=== PATIENT | male | born 1965 | race Caucasian/White ===

== ENCOUNTER 2019-01-29 15:22 | Emergency (ER) | payer OTHER, SELFPAY ==
[2019-01-29 15:23] VITALS: BP 123/74; PULSE 95; RESP 16; TEMP 36.5; O2SAT 97; BMI 27.1
--- NOTE | 2019-01-29 16:01 | ED.VIS.GEN ---
History of Present Illness Chief Complaint: Eye Problem Informant: Patient Onset: Yesterday Timing: Continuous Current Severity: Moderate Maximum Severity: Moderate Narrative: Patient presents with right eye foreign body since yesterday, after a grinding incident. He has no vision changes. He was seen in urgent care. Past Medical History - Allergies and Home Meds Allergies/Adverse Reactions: Allergies No Known Allergies Allergy (Verified 01/29/19 15:25) Primary Care Physician: Mayda Peña DO [Primary Care Provider] - Past Medical History: None Smoking Status: Former smoker Review of Systems General: Denies: Fever Eyes: Reports: - - Right eye foreign body as in HPI Neurological: Denies: Headache Hematologic: Denies: Easy bruising Physical Exam Vital Signs/Narrative: Vital Signs Temp Pulse Resp BP Pulse Ox 01/29/19 15:23 97.7 F L 95 16 123/74 H 97 General: Well nourished, Well developed Head: Normocephalic Eyes: - - Punctate lesion just medial to the pupil no conjunctivitis ENT: Moist mucous membranes Cardiovascular: Regular rate Respiratory: No distress Skin: Normal color Neurological: Alert, Oriented x3 Diagnostic/Tx/Re-eval - Medical Decision Making Foreign body was removed, there is slight residual rust ring which could not fully be removed. Patient will be discharged to follow-up with ophthalmology. Disposition discharged home stable condition Procedures Procedure(s): Foreign body removal right eye: Tetracaine was applied, I attempted to remove the foreign body with an 18-gauge needle, I was unsuccessful. I used a bur. Foreign body was removed, there was a rust ring after that most of the blistering was removed, however I could not remove all of it. ED Disposition - Plan for ED Patient: Disposition: Home or Assisted Living Diagnosis: Corneal foreign body Instructions: Corneal Injury, CORNEAL FOREIGN BODY, Removed, w/ Rust Ring Referrals: Jun Toribio MD [STAFF PHYSICIAN] - 2 Days
== END 2019-01-29 16:17 | disposition home or self-care (01) ==
LOC: ED 16:14
PROVIDERS: Emergency Provider Emergency Medicine; Family Provider Family Medicine; PCP Family Medicine
DX: T15.01XA Foreign body in cornea, right eye, initial encounter (principal); X58.XXXA Exposure to other specified factors, initial encounter; Y93.9 Activity, unspecified; Y92.9 Unspecified place or not applicable; Y99.9 Unspecified external cause status; Z87.891 Personal history of nicotine dependence
CPT/HCPCS: 99282

== ENCOUNTER → 2020-08-07 10:03 | Outpatient (CLI) | payer OTHER, SELFPAY ==
[2020-08-07 12:20] LABS: Anion Gap 4 (5-15); BUN 17 mg/dL (7-18); BUN/Creat Ratio 15.5 RATIO (10-20); Calcium,Total 8.9 mg/dL (8.5-10.1); Chloride 107 mmol/L (98-107); Cholesterol 194 mg/dL (200); EST Glomerular Filtration Rate 74 mL/min (>60); Est Glom Filt Rate - Afr Amer 90 mL/min (>60); Glucose 112 mg/dL (74-106); High Density Lipoprotein 40 mg/dL; PSA,Total - Annual Screen 0.32 ng/mL (0.00-4.00); Sodium Level 141 mmol/L (136-145); Triglycerides 118 mg/dL; Very Low Density Lipoprotein 24 mg/dL (5-40)
== END ==
PROVIDERS: PCP Family Medicine; Visit Provider Family Medicine
DX: Z13.1 Encounter for screening for diabetes mellitus (principal); Z13.220 Encounter for screening for lipoid disorders; Z12.5 Encounter for screening for malignant neoplasm of prostate
CPT/HCPCS: 36415; 80048; 80061; 84153; G0103

== ENCOUNTER 2023-02-22 16:50 | Emergency (ER) | payer OTHER, SELFPAY ==
[2023-02-22 16:52] VITALS: BP 134/89; PULSE 73; RESP 18; TEMP 36.4; O2SAT 97; BMI 25.2
--- NOTE | 2023-02-22 16:57 | NURSING ---
NO OLD EKGS
--- NOTE | 2023-02-22 17:17 | EKG12_ITS ---
Test Reason : cp Blood Pressure : / mmHG Vent. Rate : 064 BPM Atrial Rate : 064 BPM P-R Int : 192 ms QRS Dur : 088 ms QT Int : 396 ms P-R-T Axes : 053 -20 016 degrees QTc Int : 408 ms Normal sinus rhythm Normal ECG Confirmed by KENZIE WREN ([id number]), medical editor ADONAY REGAN ([id number]) on 03/02/2023 2:00:32 PM Referred By: Ariel Confirmed By:KENZIE WREN
--- NOTE | 2023-02-22 17:20 | NURSING ---
NO OLD EKGS
[2023-02-22] MEDS: Aspirin 81 MG TAB.CHEW 324 MG PO (17:25)
[2023-02-22 17:26] VITALS: O2SAT 96
[2023-02-22 17:29] LABS: Absolute Lymphocyte Count 2.07 X10^3/uL (0.83-4.51); Absolute Neutrophil Count 4.5 X10^3/uL (2.0-7.7); Basophil# 0.04 X10^3/uL; Basophil% 0.5 % (0-1); Eosinophil# 0.16 X10^3/uL; Eosinophils% 2.1 % (0-5); Hematocrit 40.8 % (40-54); Hemoglobin 13.6 g/dL (13.0-16.5); Lymphocyte # 2.07 X10^3/ul (0.83-4.51); Lymphocyte % 27.7 % (19-41); Mean Corp Hgb Conc 33.3 g/dL (32-36); Mean Corpuscular Hgb 31.3 pg (27.0-32.0); Mean Corpuscular Volume 93.8 fL (80-94); Mean Platelet Vol. 9.4 fl (6.2-12.0); Monocyte# 0.73 X10^3/uL; Monocyte% 9.8 % (0-10); NRBC Flagged by Analyzer 0 % (0-5); Neutrophil # 4.46 X10^3/uL (2.7-7.7); Neutrophil % 59.6 % (47-70); Platelet Count 216 K/mm3 (150-450); RBC Distribution Width SD 44.6 fl (35.1-43.9); Red Blood Count 4.35 M/mm3 (4.6-6.2); White Blood Count 7.5 K/mm3 (4.4-11.0)
--- NOTE | 2023-02-22 17:35 | EDS_ITS ---
HPI <ALEXSANDER Solomon - Last Filed: 02/22/23 18:58> History of Present Illness Chief Complaint: Chest Pain Narrative Narrative: Patient presenting today with midsternal chest tightness that he has had intermittently over the past week. 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 Throughout the week he has noticed that every time he tries to exert himself he develops midsternal chest tightness and feels short of breath. This has never happened before, he denies a cardiac history. He denies a PMH of any chronic health conditions. Significant family history for cardiac disease includes his grandmother and uncle who had an RI. He denies any fever, chills, abdominal pain, nausea, and vomiting. PE Risk Factors: Negative for Recent Travel/Surgery, Recent Immobilization, Prior DVT or PE or Cancer PFS <ALEXSANDER Solomon - Last Filed: 02/22/23 18:58> [facility] Medical History Encounter for examination required by Department of Transportation (DOT) Medical History no medical history Home Medications NK 01/29/19 [History Last Taken Unknown] Allergy/AdvReac Type Severity Reaction Status Date / Time No Known Allergies Allergy Verified 02/22/23 16:51 Social History Smoking Status: Former smoker ROS <ALEXSANDER Solomon - Last Filed: 02/22/23 18:58> ROS ED Constitutional Constitutional ED: Denies chills or fever(s) Cardiovascular Cardiovascular: Reports chest pain with activity; Denies palpitations or racing heartbeat Respiratory/Chest Respiratory/Chest: Reports dyspnea on exertion; Denies cough or dyspnea Gastrointestinal Gastrointestinal: Denies abdominal pain, nausea or vomiting Musculoskeletal Musculoskeletal: Denies arthralgias or myalgias Integumentary Denies rash Neurologic Neurologic: Denies weakness EXAM <ALEXSANDER Solomon - Last Filed: 02/22/23 18:58> Physical Exam Const Vital Signs: 02/22/23 16:52 02/22/23 17:26 Temperature 97.6 F L Temperature Source Temporal Pulse Rate 73 Respiratory Rate 18 Blood Pressure 134/89 H Blood Pressure Mean 104 Pulse Ox 97 96 Oxygen Delivery Method Room Air Room Air Positive well nourished, well developed and no apparent distress General Appearance ED: well developed HEENT Reports normocephalic and head/scalp atraumatic Mouth ED: Yes moist mucous membranes normal Eyes PERRL and EOMs intact bilaterally Neck full ROM and supple Chest Wall inspection of chest normal Resp normal respiratory effort and clear to auscultation bilaterally Cardio regular rate and regular rhythm GI soft to palpation, non-tender, non-distended and no masses Back/Spine normal ROM and normal to inspection Extremity normal to inspection and full ROM Neuro oriented x3, CN's II-XII intact bilaterally, moves all extremities, no focal motor deficits and no sensory deficits noted Sensorium / Orientation: awake and alert Psych mental status grossly normal and thought process normal Skin no rashes or lesions noted and no wounds <Dr. Young Avalos, DO - Last Filed: 02/22/23 18:03> Physical Exam Const Vital Signs: 02/22/23 16:52 02/22/23 17:26 Temperature 97.6 F L Temperature Source Temporal Pulse Rate 73 Respiratory Rate 18 Blood Pressure 134/89 H Blood Pressure Mean 104 Pulse Ox 97 96 Oxygen Delivery Method Room Air Room Air <ALEXSANDER Solomon - Last Filed: 02/22/23 18:58> Heart Score History: Moderately Suspicious ECG: Normal Age: >45 - <65 years Risk Factors: No Risk Factors Troponin: </= Normal Limit Score: 2 MDM <ALEXSANDER Solomon - Last Filed: 02/22/23 18:58> [facility] Narrative Medical decision making narrative: Patient presenting due to midsternal chest tightness that he has been e xperiencing with exertion over the past week. He reports that it does not occur at rest and he has never had this happen before. He denies a PMH of any chronic health conditions. He is well-appearing and in no acute distress, vitals are unremarkable. Labs will be obtained to rule out leukocytosis, anemia, electrolyte abnormality, and ACS. Chest x-ray will be obtained to rule out pneumothorax, pleural effusion, and other cardiopulmonary abnormality. Labs overall unremarkable, troponin WNL. EKG is normal sinus rhythm. Patient has a heart score of 2, patient has been encouraged to follow-up outpatient for cardiac testing and has been given strict return instructions. He will be discharged home in stable condition and is comfortable with plan. Lab Data Attestation: I reviewed the patient's lab results. Labs: Laboratory Results - last 24 hr 02/22/23 17:05 WBC 7.5 RBC 4.35 L Hgb 13.6 Hct 40.8 MCV 93.8 MCH 31.3 MCHC 33.3 RDW Std Deviation 44.6 H RDW Coeff of She 13.0 Plt Count 216 MPV 9.4 Immature Gran % (Auto) 0.300 Neut % (Auto) 59.6 Lymph % (Auto) 27.7 [place] % (Auto) 9.8 Eos % (Auto) 2.1 Baso % (Auto) 0.5 Absolute Neuts (auto) 4.5 Absolute Lymphs (auto) 2.07 Nucleated RBC % 0 Sodium 139 Potassium 3.6 Chloride 106 Carbon Dioxide 27.0 Anion Gap 6 BUN 18 Creatinine 1.03 Estim Creat Clear Calc 94.57 Est GFR (MDRD) Af Amer 96 Est GFR (MDRD) Non-Af 79 BUN/Creatinine Ratio 17.5 Glucose 118 H Calcium 9.0 Troponin I High Sens 4 Radiography X-Ray: Read by ED Physician and Read by Radiologist Diagnostic Testing: Clinical Impression(s) from Imaging Studies Chest X-Ray 02/22/23 17:39 IMPRESSION: No radiographic evidence of acute cardiopulmonary disease. Electronically Signed: Mg Mesa MD at 17:57 EDT Reading Location ID and State: [facility] / [place] , Service support , EKG Initial EKG: Comments: 64 bpm, normal sinus rhythm, no ST elevation, reviewed and interpreted by attending ED physician <Dr. Young Avalos, DO - Last Filed: 02/22/23 18:03> [facility] Lab Data Labs: Laboratory Results - last 24 hr 02/22/23 17:05 WBC 7.5 RBC 4.35 L Hgb 13.6 Hct 40.8 MCV 93.8 MCH 31.3 MCHC 33.3 RDW Std Deviation 44.6 H RDW Coeff of She 13.0 Plt Count 216 MPV 9.4 Immature Gran % (Auto) 0.300 Neut % (Auto) 59.6 Lymph % (Auto) 27.7 [place] % (Auto) 9.8 Eos % (Auto) 2.1 Baso % (Auto) 0.5 Absolute Neuts (auto) 4.5 Absolute Lymphs (auto) 2.07 Nucleated RBC % 0 Sodium 139 Potassium 3.6 Chloride 106 Carbon Dioxide 27.0 Anion Gap 6 BUN 18 Creatinine 1.03 Estim Creat Clear Calc 94.57 Est GFR (MDRD) Af Amer 96 Est GFR (MDRD) Non-Af 79 BUN/Creatinine Ratio 17.5 Glucose 118 H Calcium 9.0 Troponin I High Sens 4 Radiography Diagnostic Testing: Clinical Impression(s) from Imaging Studies Chest X-Ray 02/22/23 17:39 IMPRESSION: No radiographic evidence of acute cardiopulmonary disease. Electronically Signed: Mg Mesa MD at 17:57 EDT Reading Location ID and State: [facility] / [place] , Service support , Treatment and Re-Evaluation :: I have personally performed a face to face assessment of the patient and have reviewed the SUDHA Note. I performed a substantive portion of the visit including all aspects of the following. My arthur findings include: History: Patient presents with chest pain that has been intermittent over the last week. Patient states it is over the left side of his chest. Patient denies any radiation of the pain. Patient admits to some shortness of breath with the pain. Patient admits to some diaphoresis. Patient denies any nausea or vomiting. Patient denies any fevers or chills. Patient denies any cough. Patient states his pain gets worse with exertion. Exam: Vital signs are stable. Patient is afebrile. Patient is in no acute distress. Oral mucosa is pink and moist. Neck is supple. Trachea is midline. There is no JVD. Heart was regular rate and rhythm. Lungs are clear and equal bilaterally. Abdomen is soft. Bowel sounds are normal. There is no tenderness. Cranial nerves II through XII are intact. There are no focal motor or sensory deficits noted. Medical Decision Making: Differential diagnosis includes cardiac dysrhythmia, cardiac ischemia, pneumonia, pneumothorax, electrolyte abnormality, anxiety, and musculoskeletal pain. EKG will be obtained to assess for cardiac dysrhythmia and cardiac ischemia. CBC will be obtained to assess for leukocytosis and anemia. Basic metabolic profile will be obtained to assess for electrolyte abnormality and renal function. High-sensitivity troponin will be obtained to assess for cardiac ischemia. Chest x-ray will be obtained to assess for pneumonia and pneumothorax. EKG was obtained. On my independent interpretation, it showed a normal sinus rhythm with a rate of 64. [place] interval, QRS interval, and QTc intervals were all normal. [place] was normal. There are no acute ST or T wave changes. Portable 1 view chest x-ray was obtained. On my independent interpretation, lung mcgarry are clear. There is normal cardiac silhouette. Bony thorax is normal. There is no acute process noted. Radiologist also interpreted the x-ray and agrees. CBC was reviewed and was within normal limits. Basic metabolic profile was revi ewed and was within normal limits. High-sensitivity troponin was reviewed and was normal at 4. Patient has a HEART score of 2. Patient was advised that this is low risk for acute cardiac event. Patient was instructed to follow-up with his primary care physician in 5 to 7 days for further evaluation. Patient was instructed return if worse in any way. Patient understood and was agreeable with the plan. All questions were answered. Discharge Plan Triage Chief Complaint: Chest Pain ED Midlevel Provider: Taryn Dill ED Provider: Young Avalos Dx/Rx/DC Orders Clinical Impression: Chest pain Instructions: ED Chest Pain, Uncertain Cause Prescriptions: No Action NK Primary Care Provider: Giuseppe Santiago Referrals: Mayda Peña DO [Med Staff - Active Staff] - 3-5 Days Activity Restrictions/Additional Instructions: Please follow-up with your PCP to set up outpatient cardiac testing. Return for any worsening of your symptoms. Disposition Disposition: Home, Self Care
--- NOTE | 2023-02-22 17:39 | RAD_ITS ---
EXAM: XR CHEST, 1 VIEW CLINICAL INDICATION: chest pain TECHNIQUE: Frontal view of the chest. COMPARISON: No relevant prior studies available. FINDINGS: LUNGS AND PLEURAL SPACES: Unremarkable. No consolidation or edema. No pneumothorax. No effusion. HEART: Unremarkable. Cardiac silhouette not enlarged. MEDIASTINUM: Central airways and mediastinal contour are unremarkable. BONES/JOINTS: Unremarkable. SOFT TISSUES: Unremarkable. RAD/Chest 1 View (Portable) IMPRESSION: No radiographic evidence of acute cardiopulmonary disease. Electronically Signed: Mg Mesa MD at 17:57 EDT ,
[2023-02-22 17:52] LABS: Anion Gap 6 (5-15); BUN 18 mg/dL (7-18); BUN/Creat Ratio 17.5 RATIO (10-20); Chloride 106 mmol/L (98-107); Creatinine, Serum 1.03 mg/dL (0.70-1.30); EST Glomerular Filtration Rate 79 mL/min (>60); Est Glom Filt Rate - Afr Amer 96 mL/min (>60); Estimated Creatinine Clearance 94.57 ml/min; Glucose 118 mg/dL (74-106); Potassium 3.6 mmol/L (3.5-5.1); Sodium Level 139 mmol/L (136-145); Troponin-I HS 4 pg/mL (3.0-78.0)
[2023-02-22 19:02] VITALS: PULSE 50
== END 2023-02-22 19:02 | disposition home or self-care (01) ==
PROVIDERS: Physician Assistant; Emergency Provider Emergency Medicine; PCP Family Medicine; Visit Provider Emergency Medicine
DX: R07.9 Chest pain, unspecified (principal); R06.02 Shortness of breath; Z87.891 Personal history of nicotine dependence
CPT/HCPCS: 71045; 80048; 84484; 85025; 93005; 99284

== ENCOUNTER → 2023-04-01 | Outpatient (CLI) | payer OTHER, SELFPAY ==
[2023-04-01 12:20] LABS: Absolute Lymphocyte Count 1.91 X10^3/uL (0.83-4.51); Absolute Neutrophil Count 2.7 X10^3/uL (2.0-7.7); Basophil# 0.04 X10^3/uL; Basophil% 0.7 % (0-1); Eosinophil# 0.26 X10^3/uL; Eosinophils% 4.8 % (0-5); Hematocrit 41.6 % (40-54); Hemoglobin 13.5 g/dL (13.0-16.5); Lymphocyte # 1.91 X10^3/ul (0.83-4.51); Lymphocyte % 34.9 % (19-41); Mean Corp Hgb Conc 32.5 g/dL (32-36); Mean Corpuscular Hgb 31.2 pg (27.0-32.0); Mean Corpuscular Volume 96.1 fL (80-94); Mean Platelet Vol. 9.6 fl (6.2-12.0); Monocyte# 0.52 X10^3/uL; Monocyte% 9.5 % (0-10); NRBC Flagged by Analyzer 0 % (0-5); Neutrophil # 2.73 X10^3/uL (2.7-7.7); Neutrophil % 49.9 % (47-70); Platelet Count 201 K/mm3 (150-450); RBC Distribution Width SD 46.6 fl (35.1-43.9); Red Blood Count 4.33 M/mm3 (4.6-6.2); White Blood Count 5.5 K/mm3 (4.4-11.0)
[2023-04-01 12:51] LABS: ALB/GLOB Ratio 0.9 RATIO (0.9-2.4); AST(SGOT) 17 U/L (15-37); Alanine Aminotransfer ALT/SGPT 34 U/L (16-61); Albumin, Serum 3.7 g/dL (3.2-5.0); Alkaline Phosphatase 51 U/L (45-117); Anion Gap 4 (5-15); BUN 17 mg/dL (7-18); BUN/Creat Ratio 18.1 RATIO (10-20); Calcium,Total 8.9 mg/dL (8.5-10.1); Chloride 107 mmol/L (98-107); Cholesterol 190 mg/dL (200); Creatinine, Serum 0.94 mg/dL (0.70-1.30); EST Glomerular Filtration Rate 88 mL/min (>60); Est Glom Filt Rate - Afr Amer 106 mL/min (>60); Globulin 3.9 g/dL (2.2-4.2); Glucose 111 mg/dL (74-106); Hemoglobin A1c 5.7 % (3.8-5.6); High Density Lipoprotein 52 mg/dL; PSA,Total - Annual Screen 0.36 ng/mL (0.00-4.00); Potassium 4.4 mmol/L (3.5-5.1); Protein, Total 7.6 g/dL (6.4-8.2); Sodium Level 139 mmol/L (136-145); Thyroid Stim Hormone (TSH) 1.41 uIU/mL (0.358-3.74); Triglycerides 100 mg/dL; Very Low Density Lipoprotein 20 mg/dL (5-40)
== END | disposition home or self-care (01) ==
LOC: MFPLAB 10:27
PROVIDERS: PCP Family Medicine; Visit Provider Family Medicine
DX: Z00.00 Encounter for general adult medical examination without abnormal findings (principal); Z12.5 Encounter for screening for malignant neoplasm of prostate; Z13.29 Encounter for screening for other suspected endocrine disorder; Z13.220 Encounter for screening for lipoid disorders; Z13.1 Encounter for screening for diabetes mellitus; Z13.0 Encounter for screening for diseases of the blood and blood-forming organs and certain disorders involving the immune mechanism
CPT/HCPCS: 36415; 80053; 80061; 83036; 84153; 84443; 85025; G0103

== ENCOUNTER → 2024-05-09 | Outpatient (CLI) | payer OTHER, SELFPAY ==
[2024-05-09 18:16] LABS: Absolute Lymphocyte Count 2.43 X10^3/uL (0.83-4.51); Absolute Neutrophil Count 2.7 X10^3/uL (2.0-7.7); Basophil# 0.05 X10^3/uL; Basophil% 0.8 % (0-1); Eosinophil# 0.34 X10^3/uL; Eosinophils% 5.5 % (0-5); Hematocrit 39.7 % (40-54); Hemoglobin 13.2 g/dL (13.0-16.5); Lymphocyte # 2.43 X10^3/ul (0.83-4.51); Lymphocyte % 39.4 % (19-41); Mean Corp Hgb Conc 33.2 g/dL (32-36); Mean Corpuscular Hgb 30.7 pg (27.0-32.0); Mean Corpuscular Volume 92.3 fL (80-94); Mean Platelet Vol. 9.6 fl (6.2-12.0); Monocyte# 0.64 X10^3/uL; Monocyte% 10.4 % (0-10); NRBC Flagged by Analyzer 0 % (0-5); Neutrophil % 43.7 % (47-70); Platelet Count 225 K/mm3 (150-450); RBC Distribution Width CV 13.2 % (11.6-14.6); RBC Distribution Width SD 44.9 fl (35.1-43.9); White Blood Count 6.2 K/mm3 (4.4-11.0)
[2024-05-09 18:56] LABS: AST(SGOT) 20 U/L (15-37); Alanine Aminotransfer ALT/SGPT 36 U/L (16-61); Albumin, Serum 3.8 g/dL (3.2-5.0); Alkaline Phosphatase 57 U/L (45-117); Anion Gap 6 (5-15); BUN 19 mg/dL (7-18); BUN/Creat Ratio 21.7 RATIO (10-20); Calcium,Total 8.9 mg/dL (8.5-10.1); Chloride 105 mmol/L (98-107); Cholesterol 229 mg/dL (200); Creatinine, Serum 0.87 mg/dL (0.70-1.30); EST Glomerular Filtration Rate 95 mL/min (>60); Est Glom Filt Rate - Afr Amer 115 mL/min (>60); Globulin 3.8 g/dL (2.2-4.2); Glucose 92 mg/dL (74-106); High Density Lipoprotein 48 mg/dL; Protein, Total 7.6 g/dL (6.4-8.2); Sodium Level 135 mmol/L (136-145); Triglycerides 138 mg/dL; Very Low Density Lipoprotein 28 mg/dL (5-40)
== END | disposition home or self-care (01) ==
LOC: MFPLAB 16:39
PROVIDERS: PCP Family Medicine; Referring Provider Family Medicine; Visit Provider Family Medicine
DX: Z00.00 Encounter for general adult medical examination without abnormal findings (principal); Z13.1 Encounter for screening for diabetes mellitus; Z13.29 Encounter for screening for other suspected endocrine disorder
CPT/HCPCS: 36415; 80053; 80061; 84443; 85025